=== PATIENT | female | born 1955 | race Caucasian/White ===

== ENCOUNTER → 2018-09-28 | Outpatient (CLI) | payer BC ==
[~2018-09-28] MED LIST: REGADENOSON 0.4 MG/5 ML DISP.SYRIN. IV ONE
--- NOTE | 2018-09-28 09:25 | PCVCIMAG ---
APPROVED REPORT Study performed: 09/28/2018 08:03:53 EXAM: Comprehensive 2D, Doppler, and color-flow Echocardiogram Patient Location: Echo lab Status: routine BSA: 1.62 HR: 68 bpmBP: 156/86 mmHg Rhythm: NSR Other Information Study Quality: Good Risk Factors: Cardiac Risk Factors: HTN, Hyperlipidemia, Smoking Indications Elevated calcium score. 2D Dimensions IVSd: 8.57 (7-11mm)LVOT Diam: 17.19 (18-24mm) LVDd: 41.96 mm PWd: 6.90 (7-11mm)Ascending Ao: 29.98 (22-36mm) LVDs: 27.83 (25-40mm) Left Atrium: 29.03 (27-40mm) Aortic Root: 27.06 mm LV Single Plane 4CH: 61.33 % LV Single Plane 2CH: 69.23 % Biplane EF: 65.9 % Volumes Left Atrial Volume (Systole) Single Plane 4CH: 26.04 mLSingle Plane 2CH: 23.98 mL LA ESV Index: 16.00 mL/m2 Aortic Valve AoV Peak Reginaldo.: 1.75 m/s AO Peak Gr.: 12.29 mmHgLVOT Max P.91 mmHg LVOT Max V: 1.31 m/s JORGITO Vmax: 1.74 cm2 Mitral Valve E/A Ratio: 0.8 MV Decel. Time: 237.95 ms MV E Max Reginaldo.: 0.74 m/s MV A Reginaldo.: 0.90 m/s TDI E/Lateral E': 14.80E/Medial E': 10.57 Medial E' Reginaldo.: 0.07 m/s Lateral E' Reginaldo.: 0.05 m/s Pulmonary Valve PV Peak Gr.: 3.11 mmHg Pulmonary Vein P Vein S: 0.49 m/sP Vein A: 0.33 m/s P Vein D: 0.30 m/sP Vein A Dur.: 65.7 msec P Vein S/D Ratio: 1.63 Tricuspid Valve TR Peak Reginaldo.: 2.60 m/s TR Peak Gr.: 27.00 mmHg Left Ventricle The left ventricle is normal size. There is normal LV segmental wall motion. There is normal left ventricular wall thickness. Left ventricular systolic function is normal. The left ventricular ejection fraction is within the normal range. LVEF is 60-65%. The left ventricular diastolic function is normal. Right Ventricle The right ventricle is normal size. The right ventricular systolic function is normal. Atria The left atrium size is normal. The atrial septum is aneurysmal. The right atrium size is normal. Aortic Valve The aortic valve is normal in structure. No aortic regurgitation is present. There is no aortic valvular stenosis. Mitral Valve The mitral valve is normal in structure. Mild mitral regurgitation. No evidence of mitral valve stenosis. Tricuspid Valve The tricuspid valve is normal in structure. Trace to mild tricuspid regurgitation. Pulmonary artery pressure is 34mmHg. Pulmonic Valve The pulmonary valve is normal in structure. There is no pulmonic valvular regurgitation. Great Vessels The aortic root is normal in size. IVC is normal in size and collapses >50% with inspiration. Pericardium There is no pericardial effusion. <Conclusion> The left ventricle is normal size. LVEF is 60-65%. The atrial septum is aneurysmal. The aortic valve is normal in structure. The mitral valve is normal in structure. Mild mitral regurgitation. The tricuspid valve is normal in structure. Trace to mild tricuspid regurgitation. Pulmonary artery pressure is 34mmHg. The pulmonary valve is normal in structure. There is no pericardial effusion.
--- NOTE | 2018-09-29 08:09 | PCVCIMAG ---
APPROVED REPORT Imaging Protocol: Rest Tc-99m/Stress Tc-99m 1 day Study performed: 09/28/2018 08:52:04 Indication: Chest pain, BERRIOS Patient Location: Out-Patient Stress Nurse: Sabrina Rogers RN, Jacquelyn Reed RN AL Tech:Samm Machado [id number] Ht: 5 ft 4 in Wt: 128 lbs BSA: 1.62 m2 HR: 66 bpm BP: 128/66 mmHg BMI: 21.9 Rhythm: Sinus Rhythm Medical History Medical History: Age, Hyperlipidemia, High CA Score, Smoker Medications: Albuterol, Xanax, Symbicort, Simvastatin, Exedrin Allergies: Zithromax, Tetracycline Pretest Chest Pain Characteristics: No chest pain Exercise History: Indeterminate Physical Disabilities: Lung status Meds Held (24 hrs): Exedrin Resting Data Rest SPECT myocardial perfusion imaging was performed in supine position 45 minutes following the intravenous injection of 11.2 mCi of Tc-99m Sestamibi. Time of rest injection: 839 Date: 09/28/2018 Administration Route: IV Administration Site: Right AC Pharmacologic Stress Pharmacologic stress test was performed by injecting Regadenoson 0.4 mg IV push over 10-15 seconds immediately followed by the intravenous injection of 34.2 mCi of Tc-99m Sestamibi. Time of stress injection: 954 Date: 09/28/2018 Administration Route: IV Administration Site: Right AC Gated Stress SPECT was performed 45 minutes after stress injection. The images were gated to evaluate regional wall motion and calculate left ventricular ejection fraction. Stress Test Details Stress Test: Pharmacologic stress testing performed using 0.4 mg of regadenoson per 5 mL given IV over 10 seconds. Reason for pharmacologic stress test: Respiratory Issues. HRMax Heart Rate (APMHR): 155 bpm Resting HR: 66 bpmTarget HR (85% APMHR): 131 bpm Max HR Achieved: 92 bpm % of APMHR: 59 Recovery HR: 72 bpm BP Resting BP: 128/66 mmHg Max BP: 152/82 mmHg Recovery BP: 132/78 mmHg ECG Resting ECG: Sinus Rhythm Stress ECG: Sinus Rhythm ST Change: None Maximum ST Deviation: 0 mm Arrhythmia: None Recovery ECG: Sinus Rhythm Recovery ST Change: None Recovery ST Deviation: 0 mm Recovery Arrhythmia: None Clinical Reason for Termination: Completed protocol Stress Symptoms: Abdominal pain, Dyspnea Exercise duration: min 55 sec Symptoms resolved with caffeine. Stress ECG Conclusion ECG: Non-ischemic Clinical: Non-ischemic Study Quality Study: Good Study Data Post stress, the left ventricular ejection was 80%.. SSS: 1 SRS: 0 SDS: 1 TID = 0.77. Perfusion No evidence of stress induced ischemia or prior myocardial infarction. Wall Motion Normal left ventricular size and function with no regional wall motion abnormalities. Nuclear Conclusion No evidence of stress induced ischemia or prior myocardial infarction. Normal left ventricular size and function with no regional wall motion abnormalities. Post stress, the left ventricular ejection was 80%. No prior study available for comparison. Interpreted by: Henry Barragan MD Electronically Approved: 09/28/2018 18:55:58 <Conclusion> ECG: Non-ischemic Clinical: Non-ischemic
== END | disposition home or self-care (01) ==
LOC: PCVCIMAG 10:11
PROVIDERS: ATTEND Internal Medicine
DX: I08.1 Rheumatic disorders of both mitral and tricuspid valves (principal); R93.1 Abnormal findings on diagnostic imaging of heart and coronary circulation; E78.5 Hyperlipidemia, unspecified; R06.09 Other forms of dyspnea
CPT/HCPCS: 78452; 93017; 93306; A9500; J2785